=== PATIENT | male | born 1955 | race Caucasian/White ===

== ENCOUNTER 2018-05-14 07:35 | Day surgery (SDC) | payer BC, OTHER ==
[2018-05-14] MEDS ORDERED: NS 1,000 ML IV ONE (07:37)
[2018-05-14] MEDS ORDERED: FAMOTIDINE 20 MG TAB PO ONE (07:37)
[2018-05-14] MEDS ORDERED: ASPIRIN EC 325 MG TAB PO ONE ×2 (07:37→08:08)
[2018-05-14] MEDS ORDERED: diphenhydrAMINE 25 MG CAP PO ONE ×2 (07:37→08:08)
[2018-05-14] MEDS ORDERED: DIAZEPAM 5 MG TAB PO ONE (07:37)
[2018-05-14] MEDS ORDERED: DIAZEPAM 5 MG TAB ONE (08:08)
[2018-05-14 08:17] LABS: PLATELET COUNT 188 10^3/uL (150-400)
--- NOTE | 2018-05-14 08:44 | PDHPUP ---
History & Physical Update H&P update statement: This history and physical update is based on an assessment of the patient which was completed after admission or registration (within 24 hours), but prior to the surgery/procedure. H&P update: H&P reviewed & patient examined, no change in patient's condition since H&P completed (Reviewed Dr. Phelps's office note dated 05/13/2018)
--- NOTE | 2018-05-14 08:45 | PDPROPOC ---
Sedation Plan of Care Sedation Plan of Care: vital signs stable, mental status noted, patient educated of risks, benefits, alternatives ASA Classification: ASA 2 Planned drugs: fentanyl, midazolam Mallampati Score: Class 2 Mallampati Reference Image: Patient passed 3-3-2 rule?: Yes
[2018-05-14] MEDS ORDERED: LIDOCAINE 1% 300 MG/30 ML SDV ONE (08:54)
[2018-05-14] MEDS ORDERED: MIDAZOLAM 2 MG/2 ML VIAL ONE ×2 (08:54→09:35)
[2018-05-14] MEDS ORDERED: IOPAMIDOL (ISOVUE-370) 150 ML BTL IV ONE (08:54)
[2018-05-14] MEDS ORDERED: fentaNYL 100 MCG/2 ML INJ ONE ×2 (08:54→09:35)
[2018-05-14 09:01] LABS: INR 0.97 (0.83-1.16); PROTIME(PATIENT) 13.1 SEC (12.0-15.0)
[2018-05-14] MEDS ORDERED: ONDANSETRON 4 MG/2 ML VIAL IVP PRN (10:11)
[2018-05-14] MEDS ORDERED: ATROPINE SULFATE 1 MG/10 ML SYR IVP PRN (10:11)
[2018-05-14] MEDS ORDERED: NITROGLYCERIN 0.4 MG BTL SL PRN (10:11)
[2018-05-14] MEDS ORDERED: OXYCODONE/APAP 5/325 TAB PO PRN (10:11)
[2018-05-14] MEDS ORDERED: HYDROCODONE/APAP 5/325 TAB PO PRN (10:11)
--- NOTE | 2018-05-14 10:17 | PDDXCAT ---
Diagnostic Cath Note - . Date: 05/14/18 Seam Checker: Yobany Indication: CCC Class III and IV angina on medical treatment - Procedure Access: right groin Procedure: left heart catheterization, coronary angiography, left ventriculogram , vein graft injection - Materials Left Heart Cath size: 6F Left Heart Cath materials: standard multipack (JL4, JR4, pigtail) - Findings-Left Heart Catheterization LM: Is stented into the LA D. There is approximately 30% ostial stenosis and 20- 30% InStent restenoses throughout the stent. LAD: Is stented. This stent has 20% diffuse InStent restenosis. There are 2 diagonals. No significant disease in the non stented portion of the LAD or the diagonal vessels. LCX: Has been grafted and is not visible with injection of the [place] left system. RCA: Is a very large superdominant vessel without flow-limiting coronary disease. rSVG: There is a saphenous vein graft with sequential grafting to ramus intermedius and obtuse marginal. The graft is free of disease. The target vessels are small but have no flow-limiting lesions. EDP: 13. Aortic pressure 116/63. LV systolic pressure 109. No aortic stenosis. LVEF: 35% with global hypokinesis and inferobasilar scar. Complications: None Estimated blood loss: <50ml Closure method: Angioseal Assessment: Stable coronary disease with no new flow-limiting lesion. Patent left main LAD stent. Patent vein graft to the ramus and obtuse marginal. Ischemic cardiomyopathy. Plan: Continue medical therapy for coronary disease and cardiomyopathy. Consider additional anti anginal therapy for possible small vessel disease.
--- NOTE | 2018-05-15 11:19 | CPEKG ---
Test Reason : OPEN Blood Pressure : / mmHG Vent. Rate : 060 BPM Atrial Rate : 060 BPM P-R Int : 179 ms QRS Dur : 118 ms QT Int : 447 ms P-R-T Axes : 110 041 113 degrees QTc Int : 447 ms Atrial-ventricular dual-paced rhythm When compared with ECG of 03/24/2014, A pacing now present Confirmed by Tawnya Haywood ([id number] on 05/15/2018 11:18:31 AM Referred By: Confirmed By:Tawnya Haywood
== END 2018-05-14 14:15 | disposition home or self-care (01) ==
LOC: FCATH 07:35
PROVIDERS: ATTEND Internal Medicine Cardiovascular Disease
PROC: 4A023N7 Measurement of Cardiac Sampling and Pressure, Left Heart, Percutaneous Approach (ICD-10-PCS; principal; 2018-05-14)
PROC: B2111ZZ Fluoroscopy of Multiple Coronary Arteries using Low Osmolar Contrast (ICD-10-PCS; principal; 2018-05-14)
PROC: B2151ZZ Fluoroscopy of Left Heart using Low Osmolar Contrast (ICD-10-PCS; principal; 2018-05-14)
DX: R07.9 Chest pain, unspecified (principal); I25.10 Atherosclerotic heart disease of native coronary artery without angina pectoris; I25.5 Ischemic cardiomyopathy; Z95.1 Presence of aortocoronary bypass graft; I10 Essential (primary) hypertension; E78.5 Hyperlipidemia, unspecified; Z95.810 Presence of automatic (implantable) cardiac defibrillator; Z95.5 Presence of coronary angioplasty implant and graft
CPT/HCPCS: C1760; J1644; J2250; J3010; Q9967